=== PATIENT | female | born 1980 | race Caucasian/White ===

== ENCOUNTER 2024-01-08 14:49 | Inpatient (IN) ==
--- NOTE | 2024-01-08 15:31 | DR.SOBA ---
HPI Time Seen Time Seen by Provider: 01/08/24 15:29 Primary Care Physician Primary Care Physician: Jose Complaints Chief Complaint Doctors Comments: 4 weeks ago Patient was admitted to [facility] in [place].She was diagnosed with Pneumonia and was treated and sent home on home 02(2-3L) and 2 antibiotics. 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 Her head ct did not reveal an acute process.Her CXR revealed Bilateral infiltrates.She was given Rocephin 1 g parenterally and was d/c with a Zpak.Patient states that today she began to feel sob and was using accessory muscle.Family states that her 02 sat on 3L was 86-89%. The Family brought Patient to ED by POV and increased her 02 to 6L NC for transport to the hospital. Patient has had increased weakness,decreased appetite x 2 days. Patient states that she has had a dry cough. Patient denies:fever,choudhury,n,v,abdl pain. 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 Patient denies: weakness,chest pain. Chief Complaint:: c/o SOB and using accessory muscles. family reports patient is on 3L NC at home and O2 sat was 86-89%. she was increased to 6L NC in route to hospital but then changed back to 3L NC. during triage she is sat 95% on 3L NC. no accessory muscle use noted at this time. COVID-19 Coronavirus risk:travel/contact w/high risk person: No Has patient experienced Coronavirus symptoms: No Source History Provided: Patient and Family Member Mode of Arrival Mode of Arrival: Wheelchair Timing Onset of Chief Complaint: 01/08/24 PMH PMH Past Medical History: Yes Past Medical History: Diabetes and Hypertension Past Surgical History: Yes Surgical History: Appendectomy and Other Past Surgical History Comment: kidney transplant Family History History of Family Medical Conditions: Yes Family Medical History: Diabetes Mellitus, Cancer, DC, Heart Failure and Hypertension Social History Type of Tobacco Use: None Alcohol Use: None Do you use any recreational Drugs:: No Lives With: Spouse Lives Where: Home Travel Risk Coronavirus risk:travel/contact w/high risk person: No Has patient experienced Coronavirus symptoms: No Infectious screening Have you traveled outside the country in the last 6 months?: No Isolation: Standard ROS Review of Systems Constitutional: No Symptoms Reported Eyes: No Symptoms Reported ENTM: No Symptoms Reported Respiratoy: Dry Cough and Short of Breath Cardiovascular: No Symptoms Reported Gastrointestinal/Abdominal: Nausea and Vomiting Genitourinary: No Symptoms Reported Neurological: No Symptoms Reported Musculoskeletal: No Symptoms Reported Integumentary: No Symptoms Reported Hematologic/Lymphatic: No Symptoms Reported Endocrine: No Symptoms Reported Psychiatric: No Symptoms Reported All Other Systems: Reviewed and Negative PE Vital Signs Vitals: Vital Signs Pulse Rate 114 Pulse Rate 114 Pulse Rate 111 Pulse Rate 114 Pulse Rate 109 Pulse Rate 111 Pulse Rate 109 Pulse Rate 108 Pulse Rate 114 Pulse Rate 109 Pulse Rate 107 Pulse Rate 111 Pulse Rate 109 Pulse Rate 110 Pulse Rate 110 Pulse Rate 109 Pulse Rate 110 Pulse Rate 112 Pulse Rate 104 Pulse Rate 108 Pulse Rate 106 Pulse Rate 106 Pulse Rate 107 Pulse Rate 106 Pulse Rate 102 Pulse Rate 107 Pulse Rate 105 Pulse Rate 103 Respiratory Rate 22 Respiratory Rate 22 Blood Pressure 132/76 Blood Pressure 136/76 Blood Pressure 132/78 Blood Pressure 144/85 O2 Sat by Pulse Oximetry 98 O2 Sat by Pulse Oximetry 97 O2 Sat by Pulse Oximetry 93 O2 Sat by Pulse Oximetry 93 O2 Sat by Pulse Oximetry 92 O2 Sat by Pulse Oximetry 93 O2 Sat by Pulse Oximetry 91 O2 Sat by Pulse Oximetry 94 O2 Sat by Pulse Oximetry 89 O2 Sat by Pulse Oximetry 92 O2 Sat by Pulse Oximetry 94 O2 Sat by Pulse Oximetry 94 O2 Sat by Pulse Oximetry 94 O2 Sat by Pulse Oximetry 94 O2 Sat by Pulse Oximetry 92 O2 Sat by Pulse Oximetry 94 O2 Sat by Pulse Oximetry 93 O2 Sat by Pulse Oximetry 93 O2 Sat by Pulse Oximetry 91 O2 Sat by Pulse Oximetry 92 O2 Sat by Pulse Oximetry 92 O2 Sat by Pulse Oximetry 93 O2 Sat by Pulse Oximetry 89 O2 Sat by Pulse Oximetry 96 O2 Sat by Pulse Oximetry 94 O2 Sat by Pulse Oximetry 95 O2 Sat by Pulse Oximetry 94 O2 Sat by Pulse Oximetry 95 General Limitations: No Limitations General Appearance: Alert and In No Apparent Distress Head Head Exam: Normal Inspection Eyes Eye exam: Normal Appearance ENT ENT Exam: Normal Exam Neck Neck Exam: Normal Inspection Chest Chest Inspection: Normal Inspection Respiratory Respiratory Exam: Normal Lung Sounds Bilat Respiratory Exam: Bilateral: Decreased Breath Sounds Cardiovascular Cardiovascular Exam: Regular Rate and Normal Rhythm Abdominal Exam Abdominal Exam: Normal Inspection, Normal Bowel Sounds and Soft Extremities Extremities Exam: Normal Inspection Back Back Exam: Normal Inspection Neurologic Neurological Exam: Alert and Oriented X3 Psychiatric Psychiatric Exam: Normal Affect and Normal Mood Skin Skin Exam: Warm, Dry, Intact and Pallor MDM Differential Diagnosis Differential Diagnosis: Pneumonia and Pulmonary embolism Differential Diagnosis Comment:: DDx: Metastatic disease lung COURSE Treatment Treatment: Patient was placed in an exam room iv access was initiated.ABG on 3L revealed P02 63/PC02 32/Ph 7.4/02sat 92%.Patient was given albuterol and atrovent duoneb. Patient's CXR revealed persistent coarse infiltrates scatttered throughout bilateral lungs.Blood cx was collected and Patient was given Zosyn 4.5g iv in the Ed. Patient has an elevated D-dimer 1.84. Patient's creatine is elevated and a CTA chest cannot be done in the ED.U/S pending. 18:30 [facility] requested a Chest CT w/o contrast. 19:15 Patient refuses doppler U/S because she states it causes too much denisse 20:[address] w/o contrast- acute pulmonary edema/viral infectious process/bronchial pneumonia.Possible metastatic disease or postinflammatoy/postinfectioe nodules. [facility] in [place] will be notified. 23:10 [facility] refuses transfer. 23:[address] Montalvo,Dr Montalvo has accepted patient to his service for further evaluation. [facility] Labs Reviewed Laboratory Results Reviewed?: Yes 01/08/24 15:50 01/08/24 15:50 Laboratory: WBC 4.8 X10^3/uL (3.6-10.0) 01/08/24 15:50 RBC 3.72 X10^6/uL (3.5-5.4) 01/08/24 15:50 Hgb 9.8 g/dL (12.0-16.0) L 01/08/24 15:50 Hct 30.6 % (36.0-47.0) L 01/08/24 15:50 MCV 82.2 fL (80.0-100.0) 01/08/24 15:50 MCH 26.4 pg (27.0-34.0) L 01/08/24 15:50 MCHC 32.1 g/dL (33.0-35.0) L 01/08/24 15:50 RDW 19.2 % (11.6-16.5) H 01/08/24 15:50 Plt Count 324 X10^3/uL (150.0-450.0) 01/08/24 15:50 MPV 6.7 fL (7.4-11.0) L 01/08/24 15:50 Neut % (Auto) 87.5 % (42.0-75.0) H 01/08/24 15:50 Lymph % (Auto) 7.3 % (21.0-51.0) L 01/08/24 15:50 [place] % (Auto) 4.7 % (0.0-13.0) 01/08/24 15:50 Eos % (Auto) 0.1 % (0.9-2.9) L 01/08/24 15:50 Baso % (Auto) 0.4 % (0.2-1.0) 01/08/24 15:50 Neut # (Auto) 4.2 x10^3/uL (2.2-4.8) 01/08/24 15:50 Lymph # (Auto) 0.4 X10^3/uL (1.3-2.9) L 01/08/24 15:50 [place] # (Auto) 0.2 x10^3/uL (0.3-0.8) L 01/08/24 15:50 Eos # (Auto) 0.0 x10^3/uL (0.0-0.2) 01/08/24 15:50 Baso # (Auto) 0.0 X10^3/uL (0.0-0.1) 01/08/24 15:50 Absolute Nucleated RBC 0.1 /100WBC 01/08/24 15:50 PT 21.4 SECONDS (11.8-14.3) 01/08/24 15:50 INR Target Range - 01/08/24 15:50 INR 1.92 (0.8-1.3) H 01/08/24 15:50 APTT 33.3 SECONDS (22.9-36.5) 01/08/24 15:50 PTT Comment - 01/08/24 15:50 D-Dimer 1.84 ug/ml (0.0-0.57) H 01/08/24 15:50 Sample Site Rbra 01/08/24 16:10 ABG pH 7.420 (7.35-7.45) 01/08/24 16:10 ABG pCO2 32.0 mmHg (35.0-45.0) L 01/08/24 16:10 ABG pO2 63.0 mmHg (80.0-100.0) L 01/08/24 16:10 ABG HCO3 20.8 mmol/L (22-26) L 01/08/24 16:10 ABG O2 Saturation 92.0 % (90-100) 01/08/24 16:10 ABG Base Excess -2.9 mmol/L (-2.0-2.0) L 01/08/24 16:10 Denilson Test N/a 01/08/24 16:10 A-a Gradient 125.0 mmHg 01/08/24 16:10 FiO2 32.0 01/08/24 16:10 Blood Gas Comments Pt [facility] elj 01/08/24 16:10 Sodium 135 mmol/L (136-145) L 01/08/24 15:50 Corrected Sodium 138 mmol/L (136-145) 01/08/24 15:50 Potassium 5.0 mmol/L (3.5-5.1) 01/08/24 15:50 Chloride 100 mmol/L (98-107) 01/08/24 15:50 Carbon Dioxide 20.9 mmol/L (21-32) L 01/08/24 15:50 BUN 80 mg/dL (7-18) H 01/08/24 15:50 Creatinine 2.91 mg/dL (0.55-1.02) H 01/08/24 15:50 Est GFR (MDRD) Af Amer 22 (>60) L 01/08/24 15:50 Est GFR (MDRD) Non-Af 19 (>60) L 01/08/24 15:50 Glucose 225 mg/dL (65-99) H 01/08/24 15:50 Calcium 10.3 mg/dL (8.5-10.1) H 01/08/24 15:50 Corrected Calcium 11.0 mg/dL (8.5-10.1) H 01/08/24 15:50 Total Bilirubin 0.70 mg/dL (0.2-1.0) 01/08/24 15:50 AST 43 Units/L (15-37) H 01/08/24 15:50 ALT 15 Units/L (12-78) 01/08/24 15:50 Alkaline Phosphatase 113 Units/L (46-116) 01/08/24 15:50 B-Natriuretic Peptide 119 pg/mL (0-79) H 01/08/24 15:50 Total Protein 6.7 g/dL (6.4-8.2) 01/08/24 15:50 Albumin 3.1 g/dL (3.4-5.0) L 01/08/24 15:50 Globulin 3.6 g/dL (2.5-4.5) 01/08/24 15:50 Albumin/Globulin Ratio 0.9 Ratio (1.1-2.1) L 01/08/24 15:50 Amylase 28 Units/L (25-115) 01/08/24 15:50 Lipase 60 Units/L (16-77) 01/08/24 15:50 Specimen Type Clean catch urine 01/08/24 15:44 Urine Color Yellow (YELLOW) 01/08/24 15:44 Urine Appearance Clear (CLEAR) 01/08/24 15:44 Urine pH 6.0 (5.0 - 8.0) 01/08/24 15:44 Ur Specific [place] 1.020 (1.000-1.030) 01/08/24 15:44 Urine Protein 2+ (NEGATIVE) 01/08/24 15:44 Urine Glucose (UA) Negative (NEGATIVE) 01/08/24 15:44 Urine Ketones 1+ (NEGATIVE) 01/08/24 15:44 Urine Blood 4+ (NEGATIVE) 01/08/24 15:44 Urine Nitrite Negative (NEGATIVE) 01/08/24 15:44 Urine Bilirubin Negative (NEGATIVE) 01/08/24 15:44 Urine Urobilinogen Normal (NORMAL) 01/08/24 15:44 Ur Leukocyte Esterase Negative (NEGATIVE) 01/08/24 15:44 Urine RBC 3-5 /HPF (0-3) A 01/08/24 15:44 Urine WBC 0-2 /HPF (0-5) 01/08/24 15:44 Ur Squamous Epith Cells Few /HPF (NEGATIVE) 01/08/24 15:44 Urine Bacteria 1+ /HPF (NEGATIVE) 01/08/24 15:44 Hyaline Casts Few /LPF (NEGATIVE) 01/08/24 15:44 Ur Culture Indicated? No/not indicated 01/08/24 15:44 EKG Compared to prior EKG Dated: 12/08/23 Rate: 109 Avery: Normal Rhythm: ST Opioid Opioid Risk Tool Age (Barrera box if 16-45): Yes History of Preadolescent Sexual Abuse: No Total: 1 Total Score Risk Category: Low Risk Copyright: Wilbert VEGA predicting aberrant behaviors Discharge Plan Diagnosis Discharge Problem: Bilateral pneumonia, Hypoxemia Discharge Plan Patient Disposition: ADMITTED INPATIENT Condition: Stable Prescriptions: No Action insulin lispro 100 unit/mL insulin pen See Protocol SUBCUT DIRECTED Protocol: ORENCIA IVPB - DR CARR Rheum Arthr Condition: DR JIMMIE CARR Dose/Route: Dx: Rheumatoid myopathy w/rheumatoid arthritis Instruction: of unspecified site Condition: . Dose/Route: ORENCIA (abatacept) dose Instruction: Also order Condition: Week 0 (Day 0) Load dose: Dose/Route: 750 mg IVPB x 1 over 30 min Instruction: Benadryl 25 mg IV prn side effects Condition: Week 2 (Day 14): Dose/Route: 750 mg IVPB x 1 over 30 min Instruction: Benadryl 25 mg IV prn side effects Condition: Thereafter [id number] (q28 days): Dose/Route: 750 mg IVPB x 1 over 30 min Instruction: Benadryl 25 mg IV prn side effects Protocol Text: Use IV set with inline FILTER when infusing Orencia IV. carvedilol [Coreg] 25 mg Tablet 25 mg PO BID Rx Instructions: must administer with a meal/food tizanidine 4 mg tablet 4 mg PO TID PRN (Reason: muscle spasm) ondansetron HCl 8 mg tablet 8 mg PO Q8H PRN (Reason: nausea/vomiting) prednisone 5 mg tablet 10 mg PO DAILY megestrol 40 mg tablet 40 mg PO BID montelukast 10 mg tablet 10 mg PO QDAY oxycodone-acetaminophen 7.5-325 mg tablet 1 tab PO QID PRN (Reason: pain) sertraline 50 mg tablet 50 mg PO QPM tacrolimus 1 mg capsule 1 mg PO BID Eliquis 5 mg tablet 5 mg PO BID Health Concerns: Post Hospitalization: new medications and changes needed to prevent readmission or further decline. Pt educated and given instructions on all concerns. Plan of Treatment: Continue with present treatment and follow up plan. Pt is to keep follow up appointment as instructed and take medications as ordered. Orders to Discharge Patient Discharge Orders: Transfer (Routine); Ordered 01/09/24 Ordered By: Saray Peralta Follow ups/Referrals Follow ups/Referrals: Jimmie Carr [Primary Care Provider] - 3 days Instructions Stand Alone Forms: Post Hospital Follow Up Care
--- NOTE | 2024-01-08 15:58 | RAD ---
EXAMINATION: CHEST, 1 VIEW HISTORY: SOB, HX OF SQUAMOUS CELL CARCINOMA; . COMPARISON STUDY: Chest x-ray 01/02/2024 TECHNIQUE: Single frontal view of the chest FINDINGS: Extensive coarse interstitial alveolar infiltrates scattered throughout both lungs. Borderline cardi ac silhouette enlargement. Bones are intact. IMPRESSION: Persistent coarse infiltrates scattered throughout both lungs. THIS IS AN ELECTRONICALLY VERIFIED FINAL REPORT 01/08/2024 3:55 PM - Electronically signed by Carmen Ricardo MD
[2024-01-08 15:59] LABS: BASOPHILS % (AUTO) 0.4 % (0.2-1.0); EOSINOPHILS % (AUTO) 0.1 % (0.9-2.9); HEMATOCRIT 30.6 % (36.0-47.0); HEMOGLOBIN 9.8 g/dL (12.0-16.0); LYMPHOCYTES # (AUTO) 0.4 X10^3/uL (1.3-2.9); LYMPHOCYTES % (AUTO) 7.3 % (21.0-51.0); MEAN CORPUSCULAR HEMOGLOBIN 26.4 pg (27.0-34.0); MEAN CORPUSCULAR HGB CONC 32.1 g/dL (33.0-35.0); MEAN CORPUSCULAR VOLUME 82.2 fL (80.0-100.0); MEAN PLATELET VOLUME 6.7 fL (7.4-11.0); MONOCYTES # (AUTO) 0.2 x10^3/uL (0.3-0.8); MONOCYTES % (AUTO) 4.7 % (0.0-13.0); NEUTROPHILS # (AUTO) 4.2 x10^3/uL (2.2-4.8); NEUTROPHILS % (AUTO) 87.5 % (42.0-75.0); PLATELET COUNT 324 X10^3/uL (150.0-450.0); RED BLOOD COUNT 3.72 X10^6/uL (3.5-5.4); RED CELL DISTRIBUTION WIDTH 19.2 % (11.6-16.5); WHITE BLOOD COUNT 4.8 X10^3/uL (3.6-10.0)
[2024-01-08 16:00] LABS: BILIRUBIN,URINE NEGATIVE (NEGATIVE); BLOOD/HEMOGLOBIN,URINE 4+ (NEGATIVE); GLUCOSE, URINE NEGATIVE (NEGATIVE); KETONES,URINE 1+ (NEGATIVE); LEUKOCYTE ESTERASE ,URINE NEGATIVE (NEGATIVE); NITRITES,URINE NEGATIVE (NEGATIVE); PROTEIN,URINE 2+ (NEGATIVE); UROBILINOGEN,URINE NORMAL (NORMAL)
[2024-01-08 16:02] LABS: APPEARANCE,URINE CLEAR (CLEAR); COLOR,URINE YELLOW (YELLOW)
[2024-01-08 16:08] LABS: BACTERIA,URINE 1+ /HPF (NEGATIVE); HYALINE CASTS, URINE FEW /LPF (NEGATIVE); SQUAMOUS EPITHELIAL CELL,UR FEW /HPF (NEGATIVE)
[2024-01-08 16:11] LABS: ALBUMIN 3.1 g/dL (3.4-5.0); CALCIUM 10.3 mg/dL (8.5-10.1); CARBON DIOXIDE 20.9 mmol/L (21-32); CREATININE 2.91 mg/dL (0.55-1.02); TOTAL PROTEIN 6.7 g/dL (6.4-8.2)
[2024-01-08 16:15] LABS: ABG BASE EXCESS -2.9 mmol/L (-2.0-2.0); ABG HCO3 20.8 mmol/L (22-26)
[2024-01-08] MEDS: DUONEB 0.5 MG/3 MG (3 mL) NEB ONE (17:32)
[2024-01-08] MEDS ORDERED: ZOFRAN INJ 4 MG VIAL ONE (17:46)
[2024-01-08] MEDS ORDERED: MORPHINE SULFATE INJ 2 MG INJ ONE (17:46)
[2024-01-08] MEDS: MORPHINE SULFATE INJ 2 MG INJ IVP ONE (17:56)
[2024-01-08 17:58] LABS: INR 1.92 (0.8-1.3)
[2024-01-08] MEDS: ZOFRAN INJ 4 MG VIAL IVP ONE (17:59)
[2024-01-08] MEDS: ZOFRAN ODT PO ONE (17:59)
[2024-01-08] MEDS: NS 250 ML IV 25 ML IV PRN (18:10)
[2024-01-08] MEDS: ZOSYN VIAL 4.5 GRAMS 4.5 G in NS 100 ML IV 100 ML IV ONE (18:10)
--- NOTE | 2024-01-08 20:08 | CT ---
EXAM:CHEST W/O CONHISTORY:Hypoxemia. Hx of squamous cell carcinomaCOMPARISON:Chest radiograph from January 08, 2024TECHNIQUE:Axial non-contrast images of the chest with coronal and sagittal reformats.Radiation dose: 213.03 mGy-cm total DLPFINDINGS:No pericardial effusion.Cardiac chambers are mildly dilated.Aorta and pulmonary arteries are normal in caliber.Mildly enlarged hilar and mediastinal lymph nodes.No axillary adenopathy.Thyroid appears normal.Central airways are widely patent.Esophagus appears normal.Numerous hepatic and bilateral renal cysts.Otherwise, the imaged portion of the upper abdomen is unremarkable.Diffuse increased interstitial markings.Bilateral reticular airspace opacities and likely interspersed nodules.Trace left effusion.No pneumothorax.No acute osseous abnormality.IMPRESSION:1. Diffuse increased interstitial markings, reticular airspace opacities and interspersed nodules. Findings are consistent with acute pulmonary edema. Reticular airspace opacities could be related to the acute pulmonary edema but could also be seen with an atypical/viral infectious process or bronchial pneumonia.2. Interspersed nodules scattered throughout the lung parenchyma which could represent metastatic disease or postinflammatory/postinfectious nodules. Recommend follow-up imaging after the acute illness has resolved to further assess the pulmonary nodules.THIS IS AN ELECTRONICALLY VERIFIED FINAL REPORT01/08/2024 8:04 PM - Electronically signed by Mark Hook MD
[2024-01-08] MEDS: TORADOL 30 MG VIAL IVP ONE (20:55)
--- NOTE | 2024-01-08 22:16 | EKG ---
Test Reason : sob Blood Pressure : */* mmHG Vent. Rate : 109 BPM Atrial Rate : 109 BPM P-R Int : 146 ms QRS Dur : 82 ms QT Int : 350 ms P-R-T Axes : 56 140 32 degrees QTc Int : 471 ms Sinus tachycardia Left posterior fascicular block Possible Anterior infarct , age undetermined Abnormal ECG No previous ECGs available Confirmed by Ketan Cody MD ([id number]) on 01/09/2024 7:35:16 AM Referred By: Confirmed By: Ketan Cody MD
[2024-01-09] MEDS ORDERED: ZOFRAN INJ 4 MG VIAL IVP PRN (00:23)
[2024-01-09] MEDS ORDERED: CONSULT PHARMACY - POTASSIUM & MAGNESIUM XX SCH (01:00)
[2024-01-09] MEDS ORDERED: ZANAFLEX PO PRN (01:08)
[2024-01-09] MEDS ORDERED: NS 250 ML IV 25 ML IV PRN (01:08)
[2024-01-09] MEDS: NS 1,000 ML IV 1,000 ML IV SCH (01:23)
[2024-01-09] MEDS: MORPHINE SULFATE INJ 2 MG INJ IVP PRN (01:40)
[2024-01-09] MEDS: ZITHROMAX INJ 500 MG VIAL 500 MG in NS 250 ML IV 250 ML IV SCH (01:49)
[2024-01-09] MEDS ORDERED: ZOFRAN TAB 4 MG PO PRN (02:11)
[2024-01-09 03:15] VITALS: BMI 30.5
[2024-01-09] MEDS: ZYVOX 600MG IV 600 MG/300 ML BAG IV SCH (04:27)
[2024-01-09 05:14] LABS: BASOPHILS % (AUTO) 0.2 % (0.2-1.0); EOSINOPHILS % (AUTO) 0.6 % (0.9-2.9); HEMATOCRIT 24.1 % (36.0-47.0); LYMPHOCYTES # (AUTO) 0.6 X10^3/uL (1.3-2.9); LYMPHOCYTES % (AUTO) 11.4 % (21.0-51.0); MEAN CORPUSCULAR HEMOGLOBIN 26.3 pg (27.0-34.0); MEAN CORPUSCULAR HGB CONC 32.4 g/dL (33.0-35.0); MEAN CORPUSCULAR VOLUME 81.3 fL (80.0-100.0); MONOCYTES # (AUTO) 0.6 x10^3/uL (0.3-0.8); MONOCYTES % (AUTO) 11.3 % (0.0-13.0); NEUTROPHILS # (AUTO) 3.7 x10^3/uL (2.2-4.8); NEUTROPHILS % (AUTO) 76.5 % (42.0-75.0); PLATELET COUNT 290 X10^3/uL (150.0-450.0); RED BLOOD COUNT 2.97 X10^6/uL (3.5-5.4); WHITE BLOOD COUNT 4.9 X10^3/uL (3.6-10.0)
[2024-01-09 05:23] LABS: ALBUMIN 2.7 g/dL (3.4-5.0); CALCIUM 9.9 mg/dL (8.5-10.1); CARBON DIOXIDE 23.4 mmol/L (21-32); COR CA(FOR HYPOALB) 10.9 mg/dL (8.5-10.1); CREATININE 3.01 mg/dL (0.55-1.02); TOTAL PROTEIN 5.6 g/dL (6.4-8.2)
[2024-01-09 05:49] LABS: HEMOGLOBIN 7.8 g/dL (12.0-16.0)
[2024-01-09] MEDS: ZOSYN VIAL 4.5 GRAMS 4.5 G in NS 100 ML IV 100 ML IV SCH (06:31)
[2024-01-09] MEDS: ZOSYN VIAL 3.375 GRAMS 3.375 G in NS 100 ML IV 100 ML IV SCH (07:22)
[2024-01-09] MEDS: PREDNISONE TAB 5 MG PO SCH (08:50)
[2024-01-09] MEDS: ELIQUIS PO SCH (08:50)
[2024-01-09] MEDS: MEGACE PO SCH (08:50)
[2024-01-09] MEDS: COREG TAB 25 MG PO SCH (08:50)
[2024-01-09] MEDS: SINGULAIR TAB 10 MG PO SCH (08:51)
[2024-01-09] MEDS ORDERED: PULMICORT NEB TX 0.5 MG NEB SCH (09:00)
[2024-01-09] MEDS ORDERED: DUONEB 0.5 MG/3 MG (3 mL) NEB SCH (09:00)
[2024-01-09] MEDS: PULMICORT NEB TX 0.5 MG NEB SCH (09:36)
[2024-01-09] MEDS: DUONEB 0.5 MG/3 MG (3 mL) NEB SCH (09:37)
[2024-01-09] MEDS: LASIX IVP SCH (10:21)
[2024-01-09] MEDS: TACROLIMUS PO SCH ×2 (10:21→20:48)
[2024-01-09] MEDS: PERCOCET TAB 5/325 MG PO PRN (10:21)
[2024-01-09] MEDS: NovoLIN R (or HumuLIN R) SUBCUT PRN (11:15)
[2024-01-09] MEDS: ZOLOFT PO SCH (20:48)
[2024-01-09] MEDS: SNACK - Diabetic Appropriate PO SCH (21:03)
[2024-01-10 05:14] LABS: BASOPHILS % (AUTO) 0.1 % (0.2-1.0); EOSINOPHILS % (AUTO) 0.5 % (0.9-2.9); HEMATOCRIT 25.3 % (36.0-47.0); HEMOGLOBIN 8.2 g/dL (12.0-16.0); LYMPHOCYTES # (AUTO) 0.6 X10^3/uL (1.3-2.9); LYMPHOCYTES % (AUTO) 10.7 % (21.0-51.0); MEAN CORPUSCULAR HEMOGLOBIN 26.2 pg (27.0-34.0); MEAN CORPUSCULAR HGB CONC 32.3 g/dL (33.0-35.0); MEAN CORPUSCULAR VOLUME 81.1 fL (80.0-100.0); MEAN PLATELET VOLUME 6.7 fL (7.4-11.0); MONOCYTES # (AUTO) 0.6 x10^3/uL (0.3-0.8); MONOCYTES % (AUTO) 10.9 % (0.0-13.0); NEUTROPHILS # (AUTO) 4.3 x10^3/uL (2.2-4.8); NEUTROPHILS % (AUTO) 77.8 % (42.0-75.0); PLATELET COUNT 322 X10^3/uL (150.0-450.0); RED BLOOD COUNT 3.12 X10^6/uL (3.5-5.4); RED CELL DISTRIBUTION WIDTH 19.2 % (11.6-16.5); WHITE BLOOD COUNT 5.6 X10^3/uL (3.6-10.0)
[2024-01-10 05:21] LABS: ALBUMIN 2.6 g/dL (3.4-5.0); CALCIUM 9.6 mg/dL (8.5-10.1); CARBON DIOXIDE 25.4 mmol/L (21-32); COR CA(FOR HYPOALB) 10.7 mg/dL (8.5-10.1); CREATININE 3.05 mg/dL (0.55-1.02); POTASSIUM 4.6 mmol/L (3.5-5.1); TOTAL PROTEIN 5.7 g/dL (6.4-8.2)
--- NOTE | 2024-01-10 07:46 | DR.H&P ---
H&P History & Physical for Day of: H&P Date: 01/09/24 Chief Complaint Chief Complaint: Shortness of breath Cough, Weakness History of Present Illness History of Present Illness: Pt is a 43 year old female with past medical history of renal transplant, recurrent DVT, Hypertension, DMT2, presenting with cough, shortness of breath, and weakness that has been progressively worsening over the past few days. She was recently discharged from [facility] in [place] for pneumonia and has been on home oxygen 2-3L since. Labs/imaging: Wbc 4.9, Hemoglobin 7.8, Platelets 290, Sodium 139, Potassium 5.0, Creatinine 3.01, Glucose 146, D-dimer 1.84, BNP 119, INR 1.92, UA negative, AIT pending, ABG was obtained: pH 7.42, pCO2 32, pO2 63, HCO3 20, O2sat 92% on FiO2 32%. CXR revealed: Persistent coarse infiltrates scattered throughout both lungs. CT chest was obtained that revealed: 1. Diffuse increased interstitial markings, re ticular airspace opacities and interspersed nodules. Findings are consistent with acute pulmonary edema. Reticular airspace opacities could be related to the acute pulmonary edema but could also be seen with an atypical/viral infectious process or bronchial pneumonia. 2. Interspersed nodules scattered throughout the lung parenchyma which could represent metastatic disease or postinflammatory/postinfectious nodules. Recommend follow-up imaging after the acute illness has resolved to further assess the pulmonary nodules. Pt was admitted for bilateral pneumonia, acute pulmonary edema, acute on chronic respiratory failure, and acute on chronic renal failure. Start on IV antibiotics: Azithromycin and Zosyn. Scheduled bronchodilators, IVF NS@KVO. Will order Echo, COVID/Flu/RSV panel. Due to pulmonary edema will give IV lasix 40mg x 2 doses. Repeat CXR after. Pt is currenly on 4-5 L supplemental oxygen via nasal cannula. Will wean/titrate as tolerated. Continue to closely monitor and follow up labs/imaging. Time spent on clinical assessment, reviewing labs and imaging, decision making, and documentation greater than 45 minutes. Past Medical History Past Medical History: Diabetes and Hypertension Past Surgical History Surgical History: Appendectomy and Organ Transplant Family History Family Medical History: Diabetes Mellitus, Cancer, [place], Heart Failure and Hypertension Social History Does patient currently use any type of tobacco product: No Type of Tobacco Use: None Alcohol Use: None Drug Use: None Medications Home Medications: Home Medications Medication Instructions Recorded Confirmed Type insulin lispro 100 unit/mL See Protocol subcut DIRECTED 01/02/24 01/08/24 History subcutaneous pen apixaban 5 mg tablet (Eliquis) 5 mg PO BID 01/08/24 01/08/24 History carvedilol 25 mg tablet (Coreg) 25 mg PO BID 01/08/24 01/08/24 History megestrol 40 mg tablet 40 mg PO BID 01/08/24 01/08/24 History montelukast 10 mg tablet 10 mg PO QDAY 01/08/24 01/08/24 History ondansetron HCl 8 mg tablet 8 mg PO Q8H PRN nausea/vomiting 01/08/24 01/08/24 History oxycodone-acetaminophen 7.5 mg-325 1 tab PO QID PRN pain 01/08/24 01/08/24 History mg tablet prednisone 5 mg tablet 10 mg PO DAILY 01/08/24 01/08/24 History sertraline 50 mg tablet 50 mg PO QPM 01/08/24 01/08/24 History tacrolimus 1 mg capsule, 1 mg PO BID 01/08/24 01/08/24 History immediate-release tizanidine 4 mg tablet 4 mg PO TID PRN muscle spasm 01/08/24 01/08/24 History Allergies Allergies Allergy/AdvReac Type Severity Reaction Status Date / Time alprazolam [From Xanax] Allergy Verified 01/08/24 15:18 codeine Allergy Verified 01/08/24 15:18 ciprofloxacin [From Cipro] AdvReac NAUSEA Verified 01/08/24 15:18 levofloxacin [From Levaquin] AdvReac NAUSEA Verified 01/08/24 15:18 Labs 01/10/24 04:50 01/10/24 04:50 Labs: Laboratory WBC 4.9 X10^3/uL (3.6-10.0) 01/09/24 04:23 RBC 2.97 X10^6/uL (3.5-5.4) L 01/09/24 04:23 Hgb 7.8 g/dL (12.0-16.0) L D 01/09/24 04:23 Hct 24.1 % (36.0-47.0) L 01/09/24 04:23 MCV 81.3 fL (80.0-100.0) 01/09/24 04:23 MCH 26.3 pg (27.0-34.0) L 01/09/24 04:23 MCHC 32.4 g/dL (33.0-35.0) L 01/09/24 04:23 RDW 19.0 % (11.6-16.5) H 01/09/24 04:23 Plt Count 290 X10^3/uL (150.0-450.0) 01/09/24 04:23 MPV 7.0 fL (7.4-11.0) L 01/09/24 04:23 Neut % (Auto) 76.5 % (42.0-75.0) H 01/09/24 04:23 Lymph % (Auto) 11.4 % (21.0-51.0) L 01/09/24 04:23 [place] % (Auto) 11.3 % (0.0-13.0) 01/09/24 04:23 Eos % (Auto) 0.6 % (0.9-2.9) L 01/09/24 04:23 Baso % (Auto) 0.2 % (0.2-1.0) 01/09/24 04:23 Neut # (Auto) 3.7 x10^3/uL (2.2-4.8) 01/09/24 04:23 Lymph # (Auto) 0.6 X10^3/uL (1.3-2.9) L 01/09/24 04:23 [place] # (Auto) 0.6 x10^3/uL (0.3-0.8) 01/09/24 04:23 Eos # (Auto) 0.0 x10^3/uL (0.0-0.2) 01/09/24 04:23 Baso # (Auto) 0.0 X10^3/uL (0.0-0.1) 01/09/24 04:23 Absolute Nucleated RBC 0.0 /100WBC 01/09/24 04:23 PT 21.4 SECONDS (11.8-14.3) 01/08/24 15:50 INR Target Range - 01/08/24 15:50 INR 1.92 (0.8-1.3) H 01/08/24 15:50 APTT 33.3 SECONDS (22.9-36.5) 01/08/24 15:50 PTT Comment - 01/08/24 15:50 D-Dimer 1.84 ug/ml (0.0-0.57) H 01/08/24 15:50 Sample Site Rbra 01/08/24 16:10 ABG pH 7.420 (7.35-7.45) 01/08/24 16:10 ABG pCO2 32.0 mmHg (35.0-45.0) L 01/08/24 16:10 ABG pO2 63.0 mmHg (80.0-100.0) L 01/08/24 16:10 ABG HCO3 20.8 mmol/L (22-26) L 01/08/24 16:10 ABG O2 Saturation 92.0 % (90-100) 01/08/24 16:10 ABG Base Excess -2.9 mmol/L (-2.0-2.0) L 01/08/24 16:10 [place] Test N/a 01/08/24 16:10 A-a Gradient 125.0 mmHg 01/08/24 16:10 FiO2 32.0 01/08/24 16:10 Blood Gas Comments Pt [place] well elj 01/08/24 16:10 Sodium 139 mmol/L (136-145) 01/09/24 04:23 Corrected Sodium 140 mmol/L (136-145) 01/09/24 04:23 Potassium 5.0 mmol/L (3.5-5.1) 01/09/24 04:23 Chloride 103 mmol/L (98-107) 01/09/24 04:23 Carbon Dioxide 23.4 mmol/L (21-32) 01/09/24 04:23 BUN 83 mg/dL (7-18) H 01/09/24 04:23 Creatinine 3.01 mg/dL (0.55-1.02) H 01/09/24 04:23 Est GFR (MDRD) Af Amer 22 (>60) L 01/09/24 04:23 Est GFR (MDRD) Non-Af 18 (>60) L 01/09/24 04:23 Glucose 146 mg/dL (65-99) H 01/09/24 04:23 POC Glucose (mg/dL) 162 mg/dL (65-99) H 01/09/24 05:21 Calcium 9.9 mg/dL (8.5-10.1) 01/09/24 04:23 Corrected Calcium 10.9 mg/dL (8.5-10.1) H 01/09/24 04:23 Total Bilirubin 0.60 mg/dL (0.2-1.0) 01/09/24 04:23 AST 35 Units/L (15-37) 01/09/24 04:23 ALT 13 Units/L (12-78) 01/09/24 04:23 Alkaline Phosphatase 87 Units/L (46-116) 01/09/24 04:23 B-Natriuretic Peptide 119 pg/mL (0-79) H 01/08/24 15:50 Total Protein 5.6 g/dL (6.4-8.2) L 01/09/24 04:23 Albumin 2.7 g/dL (3.4-5.0) L 01/09/24 04:23 Globulin 2.9 g/dL (2.5-4.5) 01/09/24 04:23 Albumin/Globulin Ratio 0.9 Ratio (1.1-2.1) L 01/09/24 04:23 Amylase 28 Units/L (25-115) 01/08/24 15:50 Lipase 60 Units/L (16-77) 01/08/24 15:50 Specimen Type Clean catch urine 01/08/24 15:44 Urine Color Yellow (YELLOW) 01/08/24 15:44 Urine Appearance Clear (CLEAR) 01/08/24 15:44 Urine pH 6.0 (5.0 - 8.0) 01/08/24 15:44 Ur Specific [place] 1.020 (1.000-1.030) 01/08/24 15:44 Urine Protein 2+ (NEGATIVE) 01/08/24 15:44 Urine Glucose (UA) Negative (NEGATIVE) 01/08/24 15:44 Urine Ketones 1+ (NEGATIVE) 01/08/24 15:44 Urine Blood 4+ (NEGATIVE) 01/08/24 15:44 Urine Nitrite Negative (NEGATIVE) 01/08/24 15:44 Urine Bilirubin Negative (NEGATIVE) 01/08/24 15:44 Urine Urobilinogen Normal (NORMAL) 01/08/24 15:44 Ur Leukocyte Esterase Negative (NEGATIVE) 01/08/24 15:44 Urine RBC 3-5 /HPF (0-3) A 01/08/24 15:44 Urine WBC 0-2 /HPF (0-5) 01/08/24 15:44 Ur Squamous Epith Cells Few /HPF (NEGATIVE) 01/08/24 15:44 Urine Bacteria 1+ /HPF (NEGATIVE) 01/08/24 15:44 Hyaline Casts Few /LPF (NEGATIVE) 01/08/24 15:44 Ur Culture Indicated? No/not indicated 01/08/24 15:44 Review of Systems Constitutional: Chills and Weakness Eyes: No Symptoms Reported ENT: No Symptoms Reported Respiratory: Cough, Shortness of Breath and Wheezing Cardiovascular: No Symptoms Reported Gastrointestinal: No Symptoms Reported Genitourinary: No Symptoms Reported Musculoskeletal: No Symptoms Reported Skin: No Symptoms Reported Neurological: No Symptoms Reported Physical Exam Vital Signs: Vital Signs Temperature 97.9 F Temperature 97.9 F Pulse Rate 99 Pulse Rate 115 Pulse Rate 127 Pulse Rate 125 Pulse Rate 113 Pulse Rate 117 Pulse Rate 114 Pulse Rate 115 Respiratory Rate 28 Respiratory Rate 26 Respiratory Rate 34 Respiratory Rate 28 Respiratory Rate 28 Respiratory Rate 31 Respiratory Rate 30 Blood Pressure 139/79 Blood Pressure 127/70 Blood Pressure 124/70 Blood Pressure 134/77 Blood Pressure 148/84 O2 Sat by Pulse Oximetry 93 O2 Sat by Pulse Oximetry 94 O2 Sat by Pulse Oximetry 90 O2 Sat by Pulse Oximetry 92 O2 Sat by Pulse Oximetry 92 O2 Sat by Pulse Oximetry 92 O2 Sat by Pulse Oximetry 93 Oriented: Normal Eyes: Normal Ear: Normal Nose: Normal Throat: Normal Respiratory: Rhonchi Throughout and Rales Throughout Cardiovascular: Normal : Normal Auscultation: Bowel Sounds: Normal Palpation: Normal Tenderness: Normal Skin: Normal Musculoskeletal: Normal Psychiatric: Normal Mood Description: Calm and Appropriate Affect: Normal Speech Pattern: Clear and Appropriate Assessment/Plan (1) Bilateral interstitial pneumonia: Status: Acute Plan: IV antibiotics scheduled bronchodilators supplemental o2 (2) Dehydration, mild: Status: Acute (3) Acute and chronic respiratory failure: Status: Acute (4) Acute on chronic renal failure: Status: Acute (5) Acute pulmonary edema: Status: Acute Plan: IV lasix 40mg x 2 doses Review H&P Reviewed: Yes Patient was examined?: Yes
--- NOTE | 2024-01-10 08:30 | RAD ---
EXAM:Chest AP and lateral viewsHISTORY:PneumoniaCOMPARISON: 024FINDINGS:The heart is upper normal in transverse dimension. There is interval progression of diffuse bilateral pulmonary infiltrates without evidence for dominant mass, pneumothorax or pleural effusion.IMPRESSION:Slight progression of pulmonary disease consistent with increasing pneumonia/edema. Some element of underlying/baseline chronic fibrosis may be present; there are no older chest exams available for comparison to confirm this.THIS IS AN ELECTRONICALLY VERIFIED FINAL REPORT01/10/2024 8:26 AM - Electronically signed by Myles Chaparro MD
[2024-01-10 10:13] LABS: ABG BASE EXCESS -1.4 mmol/L (-2.0-2.0); ABG HCO3 22.8 mmol/L (22-26)
[2024-01-10 10:15] LABS: ABG ALLEN TEST POS
[2024-01-10 11:50] LABS: FREE T4 (FREE THYROXINE) 1.46 ng/dL (0.76-1.46); TSH (3RD GENERATION) 1.829 uIU/mL (0.358-3.74)
[2024-01-10] MEDS: TYLENOL 325 MG TAB PO PRN (12:49)
[2024-01-10] MEDS: LASIX IVP ONE (13:25)
[2024-01-10] MEDS: PROTONIX INJ 40 MG VIAL IVP ONE ×2 (16:38→18:00)
[2024-01-10 18:12] LABS: BASOPHILS % (AUTO) 0.2 % (0.2-1.0); EOSINOPHILS % (AUTO) 0.1 % (0.9-2.9); HEMATOCRIT 25.4 % (36.0-47.0); HEMOGLOBIN 8.2 g/dL (12.0-16.0); LYMPHOCYTES # (AUTO) 0.3 X10^3/uL (1.3-2.9); LYMPHOCYTES % (AUTO) 9.2 % (21.0-51.0); MEAN CORPUSCULAR HEMOGLOBIN 26.3 pg (27.0-34.0); MEAN CORPUSCULAR HGB CONC 32.1 g/dL (33.0-35.0); MEAN CORPUSCULAR VOLUME 81.8 fL (80.0-100.0); MEAN PLATELET VOLUME 6.6 fL (7.4-11.0); MONOCYTES # (AUTO) 0.2 x10^3/uL (0.3-0.8); MONOCYTES % (AUTO) 5.8 % (0.0-13.0); NEUTROPHILS # (AUTO) 2.9 x10^3/uL (2.2-4.8); NEUTROPHILS % (AUTO) 84.7 % (42.0-75.0); PLATELET COUNT 280 X10^3/uL (150.0-450.0); RED BLOOD COUNT 3.11 X10^6/uL (3.5-5.4); RED CELL DISTRIBUTION WIDTH 18.9 % (11.6-16.5); WHITE BLOOD COUNT 3.4 X10^3/uL (3.6-10.0)
[2024-01-10 18:31] LABS: ALBUMIN 2.6 g/dL (3.4-5.0); CALCIUM 9.4 mg/dL (8.5-10.1); CARBON DIOXIDE 26.7 mmol/L (21-32); COR CA(FOR HYPOALB) 10.5 mg/dL (8.5-10.1); POTASSIUM 4.8 mmol/L (3.5-5.1); TOTAL PROTEIN 5.8 g/dL (6.4-8.2)
[2024-01-10] MEDS: ZYVOX 600MG IV 600 MG/300 ML BAG IV SCH (20:17)
[2024-01-11] MEDS: ALBUMIN HUMAN 25%- 100 ML 100 ML IV ONE (03:45)
[2024-01-11] MEDS: LASIX IVP ONE (04:36)
[2024-01-11 05:27] LABS: BASOPHILS % (AUTO) 0.2 % (0.2-1.0); EOSINOPHILS % (AUTO) 0.4 % (0.9-2.9); HEMATOCRIT 23.5 % (36.0-47.0); HEMOGLOBIN 7.6 g/dL (12.0-16.0); LYMPHOCYTES # (AUTO) 0.6 X10^3/uL (1.3-2.9); LYMPHOCYTES % (AUTO) 11.9 % (21.0-51.0); MEAN CORPUSCULAR HEMOGLOBIN 26.2 pg (27.0-34.0); MEAN CORPUSCULAR HGB CONC 32.3 g/dL (33.0-35.0); MEAN CORPUSCULAR VOLUME 81.1 fL (80.0-100.0); MEAN PLATELET VOLUME 6.7 fL (7.4-11.0); MONOCYTES # (AUTO) 0.6 x10^3/uL (0.3-0.8); MONOCYTES % (AUTO) 11.1 % (0.0-13.0); NEUTROPHILS % (AUTO) 76.4 % (42.0-75.0); PLATELET COUNT 285 X10^3/uL (150.0-450.0); WHITE BLOOD COUNT 5.3 X10^3/uL (3.6-10.0)
[2024-01-11 05:45] LABS: ALBUMIN 3.1 g/dL (3.4-5.0); CALCIUM 9.4 mg/dL (8.5-10.1); COR CA(FOR HYPOALB) 10.1 mg/dL (8.5-10.1); CREATININE 2.78 mg/dL (0.55-1.02); POTASSIUM 4.6 mmol/L (3.5-5.1)
[2024-01-11 06:29] LABS: ABG BASE EXCESS 0.5 mmol/L (-2.0-2.0); ABG HCO3 25.4 mmol/L (22-26)
--- NOTE | 2024-01-11 07:49 | RAD ---
EXAMINATION:CHEST, 1 VIEWHISTORY:hypoxia, pneumonia ; .COMPARISON STUDY:01/10/2024TECHNIQUE:One viewFINDINGS:Heart size is upper limits of normal. Diffuse bilateral infiltrates are unchanged. No pneumothorax, new infiltrate or other change noted. Necklace projects over the neck.IMPRESSION:No change in diffuse bilateral infiltrates. Follow-up recommendedTHIS IS AN ELECTRONICALLY VERIFIED FINAL REPORT01/11/2024 7:45 AM - Electronically signed by Ezra Mathur MD
[2024-01-11 13:58] VITALS: RESP 21
[2024-01-11] MEDS ORDERED: AFRIN NASAL SPRAY PRN (15:40)
[2024-01-11] MEDS: AFRIN NASAL SPRAY PRN (17:39)
[2024-01-11 17:52] VITALS: BP 156/72; PULSE 96; TEMP 98.4; O2SAT 99
== END 2024-01-11 19:35 | disposition short-term general hospital (02) | DRG 193 ==
LOC: ER 14:49 → ICU 01-09 00:19 → MED/SURG 01-09 15:37
PROVIDERS: ADMIT Internal Medicine; ATTEND Internal Medicine
DX: E11.65 Type 2 diabetes mellitus with hyperglycemia; J18.8 Other pneumonia, unspecified organism; Z94.0 Kidney transplant status; I12.9 Hypertensive chronic kidney disease with stage 1 through stage 4 chronic kidney disease, or unspecified chronic kidney disease; R94.31 Abnormal electrocardiogram [ECG] [EKG]; Z20.822 Contact with and (suspected) exposure to COVID-19; E86.0 Dehydration; N17.8 Other acute kidney failure; R26.89 Other abnormalities of gait and mobility; Z99.81 Dependence on supplemental oxygen; J96.20 Acute and chronic respiratory failure, unspecified whether with hypoxia or hypercapnia; I10 Essential (primary) hypertension; N18.9 Chronic kidney disease, unspecified; J81.0 Acute pulmonary edema; R79.1 Abnormal coagulation profile; C76.52 Malignant neoplasm of left lower limb